=== PATIENT | female | born 1980 | race Caucasian/White ===

== ENCOUNTER → 2016-06-04 | Outpatient (CLI) | payer OTHER | LOC: M OUTALCOH 09:28 | PROVIDERS: ATTEND Psychiatry & Neurology Psychiatry | DX: F15.20 Other stimulant dependence, uncomplicated (principal) ==

== ENCOUNTER 2016-06-29 08:45 | Outpatient (RCR) | payer OTHER | END 2016-07-01 | LOC: M OUTALCOH 08:45 | PROVIDERS: ATTEND Psychiatry & Neurology Psychiatry | DX: F15.20 Other stimulant dependence, uncomplicated (principal); F17.210 Nicotine dependence, cigarettes, uncomplicated ==

== ENCOUNTER 2016-07-31 09:00 | Outpatient (RCR) | payer OTHER | END 2016-08-01 | LOC: M OUTALCOH 09:00 | PROVIDERS: ATTEND Psychiatry & Neurology Psychiatry | DX: F15.20 Other stimulant dependence, uncomplicated (principal); F17.200 Nicotine dependence, unspecified, uncomplicated ==

== ENCOUNTER → 2016-08-31 | Outpatient (RCR) | payer OTHER ==
[~2016-08-31] MED LIST: BUPR150T3; COMBAER6 INH; DEPA1TAB3 PO; MELA3TAB PO; MONT10TA2 PO; NALT50TA4 PO; OMEP40CA2 PO; OXYB5TAB10 PO; PRAZ1CAP; RA C PO; RISP1TAB42 PO; TRAZ1TAB14 PO; VENTAER IN; WELLTAB40 PO; ZITHTAB PO; [UNRECOGNIZED DRUG - CODE]; [UNRECOGNIZED DRUG - CODE] PO
== END ==
LOC: M OUTALCOH 08-02 13:48
PROVIDERS: ATTEND Psychiatry & Neurology Psychiatry
DX: Z13.9 Encounter for screening, unspecified (principal); F15.20 Other stimulant dependence, uncomplicated; F17.200 Nicotine dependence, unspecified, uncomplicated

== ENCOUNTER 2016-09-28 13:00 | Outpatient (RCR) | payer OTHER | END 2016-10-01 | LOC: M OUTALCOH 13:00 | PROVIDERS: ATTEND Psychiatry & Neurology Psychiatry | DX: F15.20 Other stimulant dependence, uncomplicated (principal); F17.200 Nicotine dependence, unspecified, uncomplicated ==

== ENCOUNTER 2016-10-31 11:00 | Outpatient (RCR) | payer OTHER | END 2016-11-01 | LOC: M OUTALCOH 11:00 | PROVIDERS: ATTEND Psychiatry & Neurology Psychiatry | DX: F15.20 Other stimulant dependence, uncomplicated (principal); F17.200 Nicotine dependence, unspecified, uncomplicated ==

== ENCOUNTER 2016-12-27 19:06 | Emergency (ER) | payer OTHER ==
[~2016-12-27] VITALS: Ht 162.6 cm; Wt 85.9 kg
[2016-12-27 19:06] VITALS: BP 131/77
[2016-12-27] MEDS ORDERED: MELA3TAB PO (19:30)
[2016-12-27] MEDS ORDERED: RISP1TAB42 PO (19:30)
[2016-12-27] MEDS ORDERED: RA C PO (19:30)
[2016-12-27] MEDS ORDERED: COMBAER6 INH (19:30)
[2016-12-27] MEDS ORDERED: DEPA1TAB3 PO (19:30)
[2016-12-27] MEDS ORDERED: [UNRECOGNIZED DRUG - CODE] (19:30)
[2016-12-27] MEDS ORDERED: BUPR150T3 (19:30)
[2016-12-27] MEDS ORDERED: NALT50TA4 PO (19:30)
[2016-12-27] MEDS ORDERED: PRAZ1CAP (19:30)
[2016-12-27] MEDS ORDERED: WELLTAB40 PO (19:30)
[2016-12-27] MEDS ORDERED: MONT10TA2 PO (19:30)
[2016-12-27] MEDS ORDERED: OXYB5TAB10 PO (19:30)
[2016-12-27] MEDS ORDERED: OMEP40CA2 PO (19:30)
[2016-12-27] MEDS ORDERED: [UNRECOGNIZED DRUG - CODE] PO (19:30)
[2016-12-27] MEDS ORDERED: TRAZ1TAB14 PO (19:30)
[2016-12-27] MEDS ORDERED: AZITHROMYCIN 250 MG TAB PO ONE (20:15)
[2016-12-27] MEDS ORDERED: ACETAMINOPHEN 325 MG TAB PO ONE (20:15)
[2016-12-27] MEDS ORDERED: ZITHTAB PO (20:21)
[2016-12-27] MEDS ORDERED: VENTAER IN (20:21)
== END 2016-12-27 20:38 | disposition home or self-care (01) ==
LOC: M ED 19:06
DX: J20.9 Acute bronchitis, unspecified (principal); Z72.0 Tobacco use

== ENCOUNTER → 2016-12-27 | Outpatient (CLI) | payer OTHER ==
[2016-12-27 12:41] LABS: MEAN CORPUSCULAR HEMOGLOBIN 31.9 pg (27.0-33.0); MEAN CORPUSCULAR HGB CONC 34.6 g/dl (32.0-36.5); MEAN CORPUSCULAR VOLUME 92.3 fl (80.0-96.0); PLATELET COUNT, AUTOMATED 181 10^3/uL (150-450); WHITE BLOOD COUNT 8.9 10^3/uL (4.0-10.0)
[2016-12-27 12:49] LABS: ALBUMIN 3.2 GM/DL (3.2-5.2); ALBUMIN/GLOBULIN RATIO 0.91 (1.00-1.93); ALKALINE PHOSPHATASE 56 U/L (45-117); ALT/SGPT 19 U/L (12-78); ANION GAP 8 MEQ/L (8-16); AST/SGOT 3 U/L (15-37); BILIRUBIN,TOTAL 0.2 MG/DL (0.2-1.0); BLOOD UREA NITROGEN 7 MG/DL (7-18); CALCIUM LEVEL 8.8 MG/DL (8.5-10.1); CARBON DIOXIDE LEVEL 28 MEQ/L (21-32); CHLORIDE LEVEL 106 MEQ/L (98-107); CREATININE FOR GFR 0.69 MG/DL (0.55-1.02); GLOMERULAR FILTRATION RATE > 60.0 (>60); GLUCOSE, FASTING 72 MG/DL (70-105); POTASSIUM SERUM 4.1 MEQ/L (3.5-5.1); SODIUM LEVEL 142 MEQ/L (136-145); TOTAL PROTEIN 6.7 GM/DL (6.4-8.2)
== END ==
LOC: M LAB 11:14
PROVIDERS: ATTEND Nurse Practitioner Family
DX: Z51.81 Encounter for therapeutic drug level monitoring (principal); Z79.899 Other long term (current) drug therapy

== ENCOUNTER → 2016-12-27 | Outpatient (CLI) | payer OTHER ==
[2016-12-27 12:30] LABS: BASO % 0.1 % (0.0-1.0); EOS # 0.2 10^3/uL (0.0-0.50); EOS % 1.9 % (0.0-3.0); IMMATURE GRANULOCYTE % 0.4 % (0-0); LYMPH # 2.4 10^3/uL (1.5-4.5); LYMPH % 26.7 % (24.0-44.0); MEAN CORPUSCULAR HEMOGLOBIN 31.6 pg (27.0-33.0); MEAN CORPUSCULAR HGB CONC 34.3 g/dl (32.0-36.5); MEAN CORPUSCULAR VOLUME 92.2 fl (80.0-96.0); MONO # 0.8 10^3/uL (0.0-0.8); MONO % 8.7 % (0.0-5.0); NEUTROPHILS # 5.6 10^3/uL (1.8-7.7); NEUTROPHILS % 62.2 % (36.0-66.0); PLATELET COUNT, AUTOMATED 182 10^3/uL (150-450); WHITE BLOOD COUNT 9.1 10^3/uL (4.0-10.0)
[2016-12-27 12:47] LABS: ALBUMIN 3.3 GM/DL (3.2-5.2); ALBUMIN/GLOBULIN RATIO 0.97 (1.00-1.93); ALKALINE PHOSPHATASE 53 U/L (45-117); ALT/SGPT 20 U/L (12-78); ANION GAP 8 MEQ/L (8-16); AST/SGOT < 3 U/L (15-37); BILIRUBIN,TOTAL 0.2 MG/DL (0.2-1.0); BLOOD UREA NITROGEN 7 MG/DL (7-18); CALCIUM LEVEL 8.7 MG/DL (8.5-10.1); CARBON DIOXIDE LEVEL 28 MEQ/L (21-32); CHLORIDE LEVEL 105 MEQ/L (98-107); CHOLESTEROL LEVEL 191 MG/DL (<200); CREATININE FOR GFR 0.65 MG/DL (0.55-1.02); FREE T4 1.09 NG/DL (0.76-1.46); GLOMERULAR FILTRATION RATE > 60.0 (>60); GLUCOSE, FASTING 71 MG/DL (70-105); SODIUM LEVEL 141 MEQ/L (136-145); TOTAL PROTEIN 6.7 GM/DL (6.4-8.2); TRIGLYCERIDES LEVEL 126 MG/DL (<150)
== END ==
LOC: M LAB 11:17
PROVIDERS: ATTEND Nurse Practitioner Adult Health
DX: Z51.81 Encounter for therapeutic drug level monitoring (principal); Z79.899 Other long term (current) drug therapy

== ENCOUNTER 2017-11-20 17:15 | Emergency (ER) | payer OTHER ==
[2017-11-20] MEDS: NS 1,000 ML IV (18:39)
[2017-11-20] MEDS: ONDANSETRON 4MG/2ML VIAL (J2405) IV (18:39)
[2017-11-20] MEDS: KETOROLAC 30 MG/ML VIAL (J1885) IV (18:40)
[2017-11-20 18:51] LABS: BASO % 0.3 % (0.0-1.0); EOS # 0.1 10^3/uL (0.0-0.50); EOS % 1.2 % (0.0-3.0); HEMATOCRIT 40.8 % (36.0-47.0); HEMOGLOBIN 13.7 g/dl (12.0-15.5); IMMATURE GRANULOCYTE % 0.3 % (0-3.0); LYMPH # 3.9 10^3/uL (1.5-4.5); LYMPH % 43.4 % (24.0-44.0); MEAN CORPUSCULAR HEMOGLOBIN 30.7 pg (27.0-33.0); MEAN CORPUSCULAR HGB CONC 33.6 g/dl (32.0-36.5); MEAN CORPUSCULAR VOLUME 91.5 fl (80.0-96.0); MONO # 0.9 10^3/uL (0.0-0.8); MONO % 10.2 % (0.0-5.0); NEUTROPHILS % 44.6 % (36.0-66.0); PLATELET COUNT, AUTOMATED 257 10^3/uL (150-450); RED BLOOD COUNT 4.46 10^6/uL (4.00-5.40); RED CELL DISTRIBUTION WIDTH 12.1 % (11.5-14.5); WHITE BLOOD COUNT 8.9 10^3/uL (4.0-10.0)
[2017-11-20 18:53] LABS: KETONE, URINE AUTO RFX NEGATIVE (NEGATIVE); LEUKOCYTE ESTERASE UR AUTO RFX NEGATIVE (NEGATIVE); NITRITE, URINE AUTO RFX NEGATIVE (NEGATIVE); RBC, URINE AUTO RFX 2 /HPF (0-3); SPECIFIC GRAVITY UR AUTO RFX 1.004 (1.002-1.035); SQUAM EPITHELIAL CELL UR AURFX 1 /HPF (0-6); WBC, URINE AUTO RFX 2 /HPF (0-3)
[2017-11-20 19:05] LABS: CONTROL LINE HCG INT CTR LINE PRESENT; HCG, SERUM QUALITATIVE NEGATIVE (NEGATIVE)
[2017-11-20 19:13] LABS: ALBUMIN 3.7 GM/DL (3.2-5.2); ALBUMIN/GLOBULIN RATIO 0.95 (1.00-1.93); ALKALINE PHOSPHATASE 57 U/L (45-117); ALT/SGPT 35 U/L (12-78); AMYLASE 22 U/L (25-115); ANION GAP 10 MEQ/L (8-16); AST/SGOT 21 U/L (7-37); BILIRUBIN,DIRECT < 0.1 MG/DL (0.0-0.2); BILIRUBIN,TOTAL 0.2 MG/DL (0.2-1.0); BLOOD UREA NITROGEN 5 MG/DL (7-18); CALCIUM LEVEL 8.7 MG/DL (8.5-10.1); CARBON DIOXIDE LEVEL 25 MEQ/L (21-32); CHLORIDE LEVEL 107 MEQ/L (98-107); CREATININE FOR GFR 0.78 MG/DL (0.55-1.30); GLOMERULAR FILTRATION RATE > 60.0 (>60); GLUCOSE, FASTING 77 MG/DL (70-100); LIPASE 142 U/L (73-393); POTASSIUM SERUM 3.8 MEQ/L (3.5-5.1); SODIUM LEVEL 142 MEQ/L (136-145); TOTAL PROTEIN 7.6 GM/DL (6.4-8.2)
== END 2017-11-20 20:50 | disposition home or self-care (01) ==
LOC: M ED 17:15
DX: K80.50 Calculus of bile duct without cholangitis or cholecystitis without obstruction (principal); K21.9 Gastro-esophageal reflux disease without esophagitis; F33.9 Major depressive disorder, recurrent, unspecified; Z79.899 Other long term (current) drug therapy; F17.210 Nicotine dependence, cigarettes, uncomplicated
CPT/HCPCS: J2405

== ENCOUNTER 2018-07-14 22:15 | Emergency (ER) | payer OTHER ==
[~2018-07-14] VITALS: Ht 162.6 cm; Wt 105.5 kg
[~2018-07-14 22:15] MED LIST changes: +AUGM0.05; +CETI10TA8 PO; -RA C PO; +VITA200044 PO; +ZOFR4TAB14 PO; -[UNRECOGNIZED DRUG - CODE]; -[UNRECOGNIZED DRUG - CODE] PO
[2018-07-14] MEDS ORDERED: ISOVUE-370 76% 100ML VIAL (Q9967) As Ordered ONE (23:54)
--- NOTE | 2018-07-15 01:39 | REPVR ---
EXAM: CT Neck With Contrast EXAM DATE/TIME: 07/14/2018 11:46 PM CLINICAL HISTORY: 37 years old, female; Signs and symptoms; Other: Hoarse; Additional info: Hoarseness/sob; ? CA lesion; Retirement smoker TECHNIQUE: Imaging protocol: Axial computed tomography images of the neck with intravenous contrast. Coronal and sagittal reformatted images were created and reviewed. Radiation optimization: All CT scans at this facility use at least one of these dose optimization techniques: automated exposure control; mA and/or kV adjustment per patient size (includes targeted exams where dose is matched to clinical indication); or iterative reconstruction. Contrast material: ISO; Contrast volume: 100 ml; Contrast route: AC COMPARISON: No relevant prior studies available. FINDINGS: No focal subcutaneous soft tissue swelling. Parapharyngeal soft tissue planes are symmetric. The posterior nasopharynx soft tissue planes may be effaced by abnormally and tonsillar soft tissue prominence Vascular structures of the neck enhance normally. No abnormally enlarged cervical chain or jugulodigastric lymph nodes. Muscles of mastication and strap muscles of the neck appear normal. Ovoid soft tissue lesion at the posterior tongue base level, displacing the epiglottis caudally, measuring 3.5 cm craniocaudal 2.4 cm AP and 2.4 cm transverse, perhaps best seen on sagittal images. Parotid and minor salivary glands are unremarkable. Laryngeal structures appear normal. Incidental right laryngeal diverticulum. Thyroid gland shows no abnormality. Lung apices are normal. Bony structures are unremarkable for age. IMPRESSION: Ovoid soft tissue lesion at the posterior tongue base level measuring 3.5 x 2.4 x 2.4 cm displacing the epiglottis inferiorly. This certainly could represent a neoplasm and should be evaluated with direct visualization. Prominent adenoid and tonsillar soft tissues Electronically signed by: Nathaniel Pelletier On 07/15/2018 01:39:20 AM
--- NOTE | 2018-07-15 01:41 | REPVR ---
EXAM: CT Chest With Contrast EXAM DATE/TIME: 07/14/2018 11:46 PM CLINICAL HISTORY: 37 years old, female; Signs and symptoms; Other: Hoarse; Additional info: Hoarseness/sob; ? CA lesion; Shelter smoker TECHNIQUE: Imaging protocol: Axial computed tomography images of the chest with intravenous contrast. Coronal and sagittal reformatted images were created and reviewed. Radiation optimization: All CT scans at this facility use at least one of these dose optimization techniques: automated exposure control; mA and/or kV adjustment per patient size (includes targeted exams where dose is matched to clinical indication); or iterative reconstruction. Contrast material: ISO; Contrast volume: 100 ml; Contrast route: AC COMPARISON: CR Abdomen,Flat Upright,PA CHEST 05/24/2014 4:57 PM FINDINGS: No thoracic aortic aneurysm or dissection. Residual thymic tissue is present in the anterior mediastinum. No enlarged mediastinal lymph nodes. No pleural effusion or pneumothorax. Pulmonary vascular/interstitial pattern does not suggest active pulmonary edema. No suspicious lung mass or air space process. No central endobronchial lesion. Limited visualization of upper abdomen shows no concerning finding. Bony structures show no acute fracture or destructive process. IMPRESSION: Unremarkable contrast enhanced CT of the chest. Electronically signed by: Nathaniel Pelletier On 07/15/2018 01:41:17 AM
[2018-07-15 02:38] VITALS: BP 157/77
--- NOTE | 2018-07-15 21:05 | ED PDOC ---
Post-Departure Follow-Up [facility] faxed formal report of ct neck for fu mgl Ruslan Goddard MD July 15, 2018 21:05
== END 2018-07-15 02:40 | disposition home or self-care (01) ==
LOC: M ED 22:15
DX: K14.8 Other diseases of tongue (principal); R49.0 Dysphonia; F17.210 Nicotine dependence, cigarettes, uncomplicated; K21.9 Gastro-esophageal reflux disease without esophagitis; Z79.899 Other long term (current) drug therapy
CPT/HCPCS: 70491; 71260; 80047; 99283; Q9967

== ENCOUNTER 2018-11-03 22:54 | Emergency (ER) | payer OTHER ==
[~2018-11-03] VITALS: Ht 162.6 cm; Wt 101.4 kg
[~2018-11-03 22:54] MED LIST changes: -MELA3TAB PO; +MELA3TAB63 PO
[2018-11-04] MEDS ORDERED: BACT800T5 PO (01:55)
[2018-11-04] MEDS ORDERED: BACTRIM 160MG/800MG DS TAB PO ONE (02:00)
[2018-11-04 02:01] VITALS: BP 142/90
== END 2018-11-04 02:20 | disposition home or self-care (01) ==
LOC: M ED 22:54
DX: L03.116 Cellulitis of left lower limb (principal); Z79.899 Other long term (current) drug therapy; F17.210 Nicotine dependence, cigarettes, uncomplicated

== ENCOUNTER 2019-04-21 22:35 | Emergency (ER) | payer OTHER ==
[~2019-04-21] VITALS: Ht 162.6 cm; Wt 107.0 kg
[~2019-04-21 22:35] MED LIST changes: +BACT800T5 PO; -MONT10TA2 PO; +MONT10TA4 PO; -OMEP40CA2 PO; +OMEP40CA97 PO
[2019-04-21] MEDS ORDERED: MORPHINE 4 MG/ML 1ML VIAL/SYRINGE (J2270) IV ONE (23:00)
[2019-04-21] MEDS ORDERED: NS 1,000 ML IV ONE (23:00)
[2019-04-21 23:04] LABS: HEMOGLOBIN 12.4 g/dl (12.0-15.5); MEAN CORPUSCULAR HEMOGLOBIN 29.1 pg (27.0-33.0); MEAN CORPUSCULAR HGB CONC 32.6 g/dl (32.0-36.5); MEAN CORPUSCULAR VOLUME 89.2 fl (80.0-96.0); PLATELET COUNT, AUTOMATED 295 10^3/uL (150-450); RED BLOOD COUNT 4.26 10^6/uL (4.00-5.40)
[2019-04-21 23:19] LABS: WHITE BLOOD COUNT 13.5 10^3/uL (4.0-10.0)
[2019-04-21 23:30] LABS: ALBUMIN 3.5 GM/DL (3.2-5.2); ALT/SGPT 22 U/L (12-78); BILIRUBIN,DIRECT < 0.1 MG/DL (0.0-0.2); BILIRUBIN,TOTAL 0.4 MG/DL (0.2-1.0); BLOOD UREA NITROGEN 8 MG/DL (7-18); CALCIUM LEVEL 8.6 MG/DL (8.5-10.1); CARBON DIOXIDE LEVEL 27 MEQ/L (21-32); CHLORIDE LEVEL 107 MEQ/L (98-107); CREATININE FOR GFR 0.86 MG/DL (0.55-1.30); GLOMERULAR FILTRATION RATE > 60.0 (>60); GLUCOSE, FASTING 105 MG/DL (70-100); LIPASE 157 U/L (73-393); POTASSIUM SERUM 3.6 MEQ/L (3.5-5.1); SODIUM LEVEL 139 MEQ/L (136-145); TOTAL PROTEIN 7.3 GM/DL (6.4-8.2)
[2019-04-21 23:32] LABS: ATYPICAL LYMPH 2 % (0-5); EOSINOPHILS 1 % (0-3); LYMPHOCYTES 45 % (16-44); MONOCYTES 3 % (0-5); NEUTROPHILS 49 % (28-66)
[2019-04-21 23:33] LABS: PLATELET ESTIMATE NORMAL (NORMAL)
[2019-04-21 23:37] LABS: HCG, SERUM QUALITATIVE NEGATIVE (NEGATIVE)
--- NOTE | 2019-04-22 00:32 | REPVR ---
PROCEDURE INFORMATION: Exam: CT Abdomen And Pelvis Without Contrast Exam date and time: 04/21/2019 10:54 PM Age: 38 years old Clinical indication: Abdominal pain; Flank; Right; Additional info: R colic TECHNIQUE: Imaging protocol: Computed tomography of the abdomen and pelvis without contrast. Radiation optimization: All CT scans at this facility use at least one of these dose optimization techniques: automated exposure control; mA and/or kV adjustment per patient size (includes targeted exams where dose is matched to clinical indication); or iterative reconstruction. COMPARISON: GALLBLADDER US 05/24/2014 4:33 PM FINDINGS: Lungs: No suspicious mass or airspace process in the visualized lung bases. Liver: Noncontrast liver shows no obvious lesion. Liver is enlarged measuring 22 cm. Gallbladder and bile ducts: Gallbladder is present and shows no evidence of gallstone. Pancreas: Noncontrast pancreas shows no obvious mass or adjacent fluid. Spleen: Noncontrast spleen shows no obvious focal deformity. Adrenals: Benign 2.3 cm right adrenal adenoma. Normal left adrenal. Kidneys and ureters: Noncontrast kidneys and ureters show no stone or obstructive change. Stomach and bowel: No evidence of small bowel obstruction. Diverticular changes are present within the colon without inflammation. Prominent right-sided colonic stool Appendix: Normal caliber appendix is identified, with no adjacent inflammation. Intraperitoneal space: No pneumoperitoneum. No abnormal pelvic mass. Vasculature: No aortic aneurysm. Lymph nodes: No enlarged lymph nodes. Bladder: Urinary bladder appears normal. Bones/joints: Bony structures show no acute fracture or destructive process. Soft tissues: Fat containing umbilical hernia is present. No effacement of normal fat planes in the ischiorectal fossa. Other findings: Limited evaluation without enteric or IV contrast. IMPRESSION: 1. No evidence of renal stone or obstruction and no evidence of acute appendicitis. 2. Prominent right-sided colonic stool which can be a source of flank pain in the setting of constipation. No rectal fecal impaction COMMENTS: Consistent with the [employer]'s Incidental Findings Committee white paper (J Am Naresh Radiol 2017): For any incidental adrenal lesion greater than 1.0 cm but less than 4.0 cm classified in this report as benign or likely benign (including classification as an adenoma or myelolipoma), no follow-up imaging is recommended per consensus recommendations based on imaging criteria. Further lab evaluation could be pursued if warranted based on clinical findings. Electronically signed by: Nathaniel Pelletier On 04/22/2019 00:31:55 AM
[2019-04-22 01:02] VITALS: BP 140/69
== END 2019-04-22 01:10 | disposition home or self-care (01) ==
LOC: M ED 22:35
DX: K59.00 Constipation, unspecified (principal); J45.909 Unspecified asthma, uncomplicated; K21.9 Gastro-esophageal reflux disease without esophagitis; Z79.899 Other long term (current) drug therapy
CPT/HCPCS: 74176; 80048; 80076; 83690; 84703; 85025; 96374; 99284; J2270

== ENCOUNTER → 2019-05-13 | Outpatient (REF) | payer OTHER ==
[2019-05-13 13:32] LABS: CHLAMYDIA DNA AMPLIFICATION NEGATIVE (NEGATIVE); GC DNA AMPLIFICATION NEGATIVE (NEGATIVE)
== END ==
LOC: M LAB REF 11:05
PROVIDERS: ATTEND Physician Assistant
DX: R30.0 Dysuria (principal)

== ENCOUNTER → 2019-07-21 | Outpatient (CLI) | payer OTHER ==
[2019-07-21 16:14] LABS: BASO % 0.3 % (0.0-1.0); EOS # 0.1 10^3/uL (0.0-0.5); EOS % 1.3 % (0.0-3.0); HEMATOCRIT 38.7 % (36.0-47.0); HEMOGLOBIN 12.3 g/dl (12.0-15.5); LYMPH % 39.1 % (24.0-44.0); MEAN CORPUSCULAR HEMOGLOBIN 27.8 pg (27.0-33.0); MEAN CORPUSCULAR HGB CONC 31.8 g/dl (32.0-36.5); MEAN CORPUSCULAR VOLUME 87.6 fl (80.0-96.0); MONO # 0.5 10^3/uL (0.0-0.8); MONO % 6.8 % (0.0-5.0); NEUTROPHILS # 4.1 10^3/uL (1.5-8.5); NEUTROPHILS % 52.2 % (36.0-66.0); PLATELET COUNT, AUTOMATED 330 10^3/uL (150-450); RED BLOOD COUNT 4.42 10^6/uL (4.00-5.40); WHITE BLOOD COUNT 7.8 10^3/uL (4.0-10.0)
[2019-07-21 16:44] LABS: ALBUMIN 3.5 GM/DL (3.2-5.2); ALT/SGPT 17 U/L (12-78); BILIRUBIN,TOTAL 0.3 MG/DL (0.2-1.0); BLOOD UREA NITROGEN 6 MG/DL (7-18); CALCIUM LEVEL 9.2 MG/DL (8.5-10.1); CARBON DIOXIDE LEVEL 27 MEQ/L (21-32); CHLORIDE LEVEL 106 MEQ/L (98-107); CHOLESTEROL LEVEL 252 MG/DL (<200); CHOLESTEROL RISK RATIO 5.478 (<5); CREATININE FOR GFR 0.84 MG/DL (0.55-1.30); GLOMERULAR FILTRATION RATE > 60.0 (>60); GLUCOSE, FASTING 106 MG/DL (70-100); HDL CHOLESTEROL 46 MG/DL (>40); LDL CHOLESTEROL 182 MG/DL (<100); NON-HDL-C 206 MG/DL; POTASSIUM SERUM 3.9 MEQ/L (3.5-5.1); SODIUM LEVEL 140 MEQ/L (136-145); THYROID STIMULATING HORMONE 0.646 uIU/ML (0.358-3.740); TRIGLYCERIDES LEVEL 122 MG/DL (<150)
[2019-07-21 17:19] LABS: HEMOGLOBIN A1c 6.4 %
== END ==
LOC: M WUC 14:36
PROVIDERS: ATTEND Nurse Practitioner Adult Health
DX: Z51.81 Encounter for therapeutic drug level monitoring (principal); Z79.899 Other long term (current) drug therapy; E78.00 Pure hypercholesterolemia, unspecified; F31.9 Bipolar disorder, unspecified

== ENCOUNTER → 2019-07-21 | Outpatient (CLI) | payer OTHER ==
[2019-07-21 16:14] LABS: BASO % 0.3 % (0.0-1.0); EOS # 0.1 10^3/uL (0.0-0.5); EOS % 1.1 % (0.0-3.0); HEMATOCRIT 39.1 % (36.0-47.0); HEMOGLOBIN 12.2 g/dl (12.0-15.5); LYMPH # 3.2 10^3/uL (1.5-5.0); LYMPH % 40.6 % (24.0-44.0); MEAN CORPUSCULAR HEMOGLOBIN 27.3 pg (27.0-33.0); MEAN CORPUSCULAR HGB CONC 31.2 g/dl (32.0-36.5); MEAN CORPUSCULAR VOLUME 87.5 fl (80.0-96.0); MONO # 0.6 10^3/uL (0.0-0.8); NEUTROPHILS % 50.7 % (36.0-66.0); PLATELET COUNT, AUTOMATED 349 10^3/uL (150-450); RED BLOOD COUNT 4.47 10^6/uL (4.00-5.40); WHITE BLOOD COUNT 7.8 10^3/uL (4.0-10.0)
[2019-07-21 16:35] LABS: ALBUMIN 3.5 GM/DL (3.2-5.2); ALT/SGPT 17 U/L (12-78); BILIRUBIN,TOTAL 0.3 MG/DL (0.2-1.0); BLOOD UREA NITROGEN 7 MG/DL (7-18); CALCIUM LEVEL 9.3 MG/DL (8.5-10.1); CARBON DIOXIDE LEVEL 27 MEQ/L (21-32); CHLORIDE LEVEL 107 MEQ/L (98-107); CREATININE FOR GFR 0.88 MG/DL (0.55-1.30); GLOMERULAR FILTRATION RATE > 60.0 (>60); GLUCOSE, FASTING 108 MG/DL (70-100); POTASSIUM SERUM 3.9 MEQ/L (3.5-5.1); SODIUM LEVEL 140 MEQ/L (136-145); TOTAL PROTEIN 6.9 GM/DL (6.4-8.2)
[2019-07-21 16:40] LABS: HCG, SERUM QUALITATIVE NEGATIVE (NEGATIVE)
[2019-07-22 09:22] LABS: HEPATITIS B SURFACE ANTIGEN NEGATIVE (NEGATIVE)
[2019-07-22 09:49] LABS: HEPATITIS B CORE ANTIBODY IGM NEGATIVE (NEGATIVE)
[2019-07-22 09:51] LABS: HIV 1&2 SCREEN CENTAUR NEGATIVE (NEGATIVE)
[2019-07-22 09:52] LABS: HEPATITIS A ANTIBODY IGM NEGATIVE (NEGATIVE)
== END ==
LOC: M WUC 14:32
PROVIDERS: ATTEND Dermatology
DX: L30.9 Dermatitis, unspecified (principal); N39.3 Stress incontinence (female) (male)

== ENCOUNTER → 2019-08-17 | Outpatient (REF) | payer OTHER ==
[~2019-08-17] MED LIST changes: -BUPR150T3; +BUPR150T4; -MELA3TAB63 PO; +MELA3TAB70 PO; +MONT10TA10 PO; -MONT10TA4 PO
== END ==
LOC: M LAB REF 15:59
PROVIDERS: ATTEND Physician Assistant
DX: R50.9 Fever, unspecified (principal); Z11.59 Encounter for screening for other viral diseases

== ENCOUNTER → 2019-11-30 | Outpatient (REF) | payer OTHER ==
[~2019-11-30] MED LIST changes: +BUPR150T3; -BUPR150T4; +MELA3TAB63 PO; -MELA3TAB70 PO; -MONT10TA10 PO; +MONT10TA4 PO
== END ==
LOC: M WUC 09:28
PROVIDERS: ATTEND Physician Assistant
DX: N30.01 Acute cystitis with hematuria (principal)

== ENCOUNTER 2020-06-03 23:03 | Emergency (ER) | payer OTHER ==
[~2020-06-03] VITALS: Ht 162.6 cm; Wt 117.7 kg
[~2020-06-03 23:03] MED LIST changes: +BUPR150T12; -BUPR150T3; -MELA3TAB63 PO; +MELA3TAB70 PO; +MONT10TA10 PO; -MONT10TA4 PO
[2020-06-03] MEDS ORDERED: BUPR15TA PO (23:10)
[2020-06-03] MEDS ORDERED: BUSP5TA PO (23:10)
[2020-06-04] MEDS ORDERED: MORPHINE 4 MG/ML 1ML VIAL/SYRINGE (J2270) IV PRN (01:25)
[2020-06-04] MEDS ORDERED: ONDANSETRON 4MG/2ML VIAL IV ONE (01:25)
[2020-06-04] MEDS ORDERED: NS 1,000 ML IV ONE (01:25)
[2020-06-04 01:41] LABS: BASO % 0.2 % (0.0-1.0); EOS # 0.2 10^3/uL (0.0-0.5); EOS % 1.6 % (0.0-3.0); HEMATOCRIT 37.4 % (36.0-47.0); HEMOGLOBIN 11.7 g/dl (12.0-15.5); LYMPH # 4.6 10^3/uL (1.5-5.0); LYMPH % 42.5 % (24.0-44.0); MEAN CORPUSCULAR HEMOGLOBIN 27.5 pg (27.0-33.0); MEAN CORPUSCULAR HGB CONC 31.3 g/dl (32.0-36.5); MONO % 8.8 % (2.0-8.0); NEUTROPHILS # 5.1 10^3/uL (1.5-8.5); NEUTROPHILS % 46.6 % (36.0-66.0); PLATELET COUNT, AUTOMATED 269 10^3/uL (150-450); RED BLOOD COUNT 4.25 10^6/uL (4.00-5.40); WHITE BLOOD COUNT 10.8 10^3/uL (4.0-10.0)
[2020-06-04 02:13] LABS: ALBUMIN 3.3 GM/DL (3.2-5.2); ALT/SGPT 20 U/L (12-78); BILIRUBIN,DIRECT < 0.1 MG/DL (0.0-0.2); BILIRUBIN,TOTAL 0.2 MG/DL (0.2-1.0); C REACTIVE PROTEIN QUANTITATIV 0.55 MG/DL (0.00-0.30); LIPASE 171 U/L (73-393)
[2020-06-04 02:26] LABS: ERYTHROCYTE SEDIMENTATION RATE 31 mm/hr (0-20)
[2020-06-04] MEDS ORDERED: ISOVUE-370 76% 100ML VIAL As Ordered ONE (02:26)
--- NOTE | 2020-06-04 03:15 | REPVR ---
PROCEDURE INFORMATION: Exam: CT Abdomen And Pelvis With Contrast Exam date and time: 06/04/2020 1:21 AM Age: 39 years old Clinical indication: Bloating; Abdominal pain; Generalized; Additional info: Abd bloating, distention, umbilical hernia, incarcerated? TECHNIQUE: Imaging protocol: Computed tomography of the abdomen and pelvis with contrast. Radiation optimization: All CT scans at this facility use at least one of these dose optimization techniques: automated exposure control; mA and/or kV adjustment per patient size (includes targeted exams where dose is matched to clinical indication); or iterative reconstruction. Contrast material: ISO; Contrast volume: 100 ml; Contrast route: INTRAVENOUS (IV); COMPARISON: CT ABD PELVIS W/O CONTRAST 04/21/2019 11:46 PM FINDINGS: Mediastinal space: Small hiatal hernia. Liver: Hepatomegaly and steatosis. Gallbladder and bile ducts: Normal. No calcified stones. No ductal dilation. Pancreas: Normal. No ductal dilation. Spleen: Normal. No splenomegaly. Adrenal glands: 2 cm right adrenal adenoma. Kidneys and ureters: Normal. No hydronephrosis. Stomach and bowel: Diverticulosis of the colon. No evidence of acute diverticulitis. Appendix: No evidence of appendicitis. Intraperitoneal space: Unremarkable. No free air. No significant fluid collection. Vasculature: Unremarkable. No abdominal aortic aneurysm. Lymph nodes: Unremarkable. No enlarged lymph nodes. Urinary bladder: Unremarkable as visualized. Reproductive: Complex 3 cm right ovarian cyst can be further assessed pelvic ultrasound if clinically warranted. Bones/joints: Mild facet arthropathy in the lower lumbar spine. Soft tissues: Fat containing umbilical hernia with stranding of the adjacent subcutaneous fat in the ventral abdominal wall. IMPRESSION: Fat containing umbilical hernia with stranding of the adjacent subcutaneous fat in the ventral abdominal wall. Complex 3 cm right ovarian cyst can be further assessed pelvic ultrasound if clinically warranted. Hepatomegaly and steatosis. No bowel obstruction. Normal appendix. Electronically signed by: Adelso Lomax On 06/04/2020 03:16:00 AM
--- NOTE | 2020-06-04 04:09 | ED PDOC ---
Post-Departure Follow-Up serial abdomional exams beingn. I was available for -jv advisory and consultat ion , and concur with her management and disposition . Ot verbalized understanding of discharge instructions and necessity of follow up with survey questionnaire designer for her rt. sided complex cyst9 not contributory t today's complains and with surgery for her umbilical hernia which was the cause of today's pain. NYA SHEEHAN MD Jun 04, 2020 04:09
[2020-06-04 04:30] VITALS: BP 159/89
== END 2020-06-04 04:34 | disposition home or self-care (01) ==
LOC: M ED 23:03
DX: K42.9 Umbilical hernia without obstruction or gangrene (principal); N83.201 Unspecified ovarian cyst, right side; F17.200 Nicotine dependence, unspecified, uncomplicated; K21.9 Gastro-esophageal reflux disease without esophagitis; J45.909 Unspecified asthma, uncomplicated
CPT/HCPCS: 74177; 80047; 80076; 82140; 83605; 83690; 85025; 85652; 86140; 96361; 96374; 96375; 99284; J2270; J2405; Q9967

== ENCOUNTER 2021-11-15 17:41 | Emergency (ER) | payer OTHER ==
[~2021-11-15] VITALS: Ht 162.6 cm; Wt 101.4 kg
[~2021-11-15 17:41] MED LIST changes: +BUPR15TA PO; +BUSP5TA PO; +CETI-25 PO; -CETI10TA8 PO; -MONT10TA10 PO; +MONT10TA97 PO; +OMEP40CA4 PO; -OMEP40CA97 PO
[2021-11-15 17:42] VITALS: BP 160/80
[2021-11-15 18:28] LABS: HEMATOCRIT 41.9 % (36.0-47.0); HEMOGLOBIN 13.8 g/dl (12.0-15.5); MEAN CORPUSCULAR HEMOGLOBIN 28.8 pg (27.0-33.0); MEAN CORPUSCULAR HGB CONC 32.9 g/dl (32.0-36.5); MEAN CORPUSCULAR VOLUME 87.5 fl (80.0-96.0); PLATELET COUNT, AUTOMATED 376 10^3/uL (150-450); RED BLOOD COUNT 4.79 10^6/uL (4.00-5.40); WHITE BLOOD COUNT 11.3 10^3/uL (4.0-10.0)
[2021-11-15 18:58] LABS: RSV AMPLIFICATION NEGATIVE (NEGATIVE)
[2021-11-15 19:01] LABS: HCG, SERUM QUALITATIVE NEGATIVE (NEGATIVE)
[2021-11-15 19:08] LABS: AMPHETAMINES LEVEL URINE POSITIVE (NEGATIVE); BARBITURATES URINE NEGATIVE (NEGATIVE); BENZODIAZEPINES URINE NEGATIVE (NEGATIVE); CANNABINOIDS URINE NEGATIVE (NEGATIVE); COCAINE METABOLITE URINE NEGATIVE (NEGATIVE); METHADONE URINE NEGATIVE (NEGATIVE); OPIATES URINE NEGATIVE (NEGATIVE); PHENCYCLIDINE URINE NEGATIVE (NEGATIVE)
[2021-11-15 19:13] LABS: ACETAMINOPHEN LEVEL < 2.0 UG/ML (10.0-30.0); ALBUMIN 3.6 GM/DL (3.2-5.2); ALT/SGPT 16 U/L (12-78); BILIRUBIN,DIRECT 0.1 MG/DL (0.0-0.2); BILIRUBIN,TOTAL 0.4 MG/DL (0.2-1.0); BLOOD UREA NITROGEN 6 MG/DL (7-18); CALCIUM LEVEL 9.6 MG/DL (8.5-10.1); CARBON DIOXIDE LEVEL 25 MEQ/L (21-32); CHLORIDE LEVEL 103 MEQ/L (98-107); CREATININE FOR GFR 0.71 MG/DL (0.55-1.30); ETHYL ALCOHOL (ETHANOL) 0.007 % (0.000-0.010); GLOMERULAR FILTRATION RATE > 60.0 (>58); GLUCOSE, FASTING 108 MG/DL (70-100); POTASSIUM SERUM 3.8 MEQ/L (3.5-5.1); SALICYLATE LEVEL 5.6 MG/DL (5.0-30.0); SODIUM LEVEL 135 MEQ/L (136-145); THYROID STIMULATING HORMONE 0.739 uIU/ML (0.358-3.740); TOTAL PROTEIN 7.7 GM/DL (6.4-8.2)
== END 2021-11-15 20:08 | disposition home or self-care (01) ==
LOC: M ED 17:41
DX: F32.A Depression, unspecified (principal)

== ENCOUNTER → 2022-03-15 | Outpatient (REF) ==
[2022-03-15 13:38] LABS: RSV AMPLIFICATION NEGATIVE (NEGATIVE)
== END ==
LOC: M LABSMTC 10:15
PROVIDERS: ATTEND Family Medicine
DX: Z11.59 Encounter for screening for other viral diseases (principal)

== ENCOUNTER 2024-06-07 12:46 | Emergency (ER) | payer MEDICAID, OTHER ==
[~2024-06-07] VITALS: Ht 162.6 cm; Wt 99.7 kg
[~2024-06-07 12:46] MED LIST changes: -AUGM0.05; +AUGM0.0511; -OXYB5TAB10 PO; +OXYB5TAB14 PO
[2024-06-07 13:37] LABS: HEMATOCRIT 44.7 % (36.0-47.0); HEMOGLOBIN 15.3 g/dl (12.0-15.5); MEAN CORPUSCULAR HGB CONC 34.2 g/dl (32.0-36.5); MEAN CORPUSCULAR VOLUME 90.7 fl (80.0-96.0); PLATELET COUNT, AUTOMATED 315 10^3/uL (150-450); RED BLOOD COUNT 4.93 10^6/uL (4.00-5.40); WHITE BLOOD COUNT 10.9 10^3/uL (4.0-10.0)
[2024-06-07 14:04] LABS: ATYPICAL LYMPH 15 % (0-5); EOSINOPHILS 1 % (0-3); LYMPHOCYTES 34 % (16-44); MONOCYTES 6 % (0-5); NEUTROPHILS 43 % (28-66); PLASMA CELL 1 % (0-0)
[2024-06-07 14:06] LABS: PLATELET ESTIMATE NORMAL (NORMAL)
[2024-06-07 14:08] LABS: BLOOD UREA NITROGEN 7 MG/DL (9-23); C REACTIVE PROTEIN QUANTITATIV < 0.50 MG/DL (<1.0); CARBON DIOXIDE LEVEL 25 MMOL/L (20-31); CHLORIDE LEVEL 112 MMOL/L (98-107); CREATININE FOR GFR 0.69 MG/DL (0.55-1.30); GLOMERULAR FILTRATION RATE > 60.0 (>58); GLUCOSE, FASTING 74 MG/DL (60-100); POTASSIUM SERUM 3.9 MMOL/L (3.5-5.1); SODIUM LEVEL 144 MMOL/L (136-145)
[2024-06-07 14:13] LABS: ERYTHROCYTE SEDIMENTATION RATE 9 mm/hr (0-20)
[2024-06-07] MEDS: methylPREDNISolone 125MG 2ML VIAL IV ONE (15:55)
[2024-06-07] MEDS: diphenhydrAMINE 50MG/ML VIAL IV STA (15:57)
[2024-06-07] MEDS: ACETAMINOPHEN 325 MG TAB PO ONE (16:00)
[2024-06-07] MEDS ORDERED: PRED10TA2 PO (17:17)
[2024-06-07] MEDS ORDERED: DIPH-435 PO (17:17)
[2024-06-07 17:33] VITALS: BP 140/72; TEMP 97.1; O2SAT 96
== END 2024-06-07 17:34 | disposition home or self-care (01) ==
LOC: M ED 12:46
DX: T78.40XA Allergy, unspecified, initial encounter (principal); K21.9 Gastro-esophageal reflux disease without esophagitis; F32.A Depression, unspecified; F41.9 Anxiety disorder, unspecified
CPT/HCPCS: 36415; 80048; 85025; 85652; 86140; 87040; 96374; 96375; 99284; J1200; J2919

== ENCOUNTER 2024-12-12 11:46 | Emergency (ER) | payer OTHER ==
[~2024-12-12] VITALS: Ht 162.6 cm; Wt 101.0 kg
[~2024-12-12 11:46] MED LIST changes: +DIPH-435 PO; +PRED10TA2 PO
[2024-12-12 12:06] VITALS: BP 135/81
[2024-12-12] MEDS: ACETAMINOPHEN 500 MG TAB PO ONE (12:24)
[2024-12-12 12:55] VITALS: TEMP 98.8; O2SAT 95
== END 2024-12-12 13:07 | disposition home or self-care (01) ==
LOC: M ED 11:46
DX: S13.4XXA Sprain of ligaments of cervical spine, initial encounter (principal); S00.83XA Contusion of other part of head, initial encounter; Y92.9 Unspecified place or not applicable; Y93.9 Activity, unspecified; Y99.0 Civilian activity done for income or pay; W01.190A Fall on same level from slipping, tripping and stumbling with subsequent striking against furniture, initial encounter; F41.9 Anxiety disorder, unspecified; F32.A Depression, unspecified; Z87.891 Personal history of nicotine dependence; Z79.52 Long term (current) use of systemic steroids; Z79.899 Other long term (current) drug therapy